=== PATIENT | female | born 1960 | race Caucasian/White ===

== ENCOUNTER → 2017-02-03 | Outpatient (CLI) | payer OTHER ==
[2017-02-03 14:27] LABS: BUN/CREATININE RATIO 13.33; CALCIUM SERUM 9.1 mg/dL (8.4-10.2); CREATININE SERUM 0.9 mg/dL (0.6-1.4); GLOM FILT RATE Estimated 70.5 mL/min (>60); POTASSIUM 4.2 mmol/L (3.5-5.1)
[2017-02-03 14:36] LABS: THYROID STIMULATING HORMONE 2.46 uIU/ml (0.34-5.60)
[2017-02-03 14:44] LABS: FREE THYROXIN (T4) 1.16 ng/dL (0.58-1.64)
== END | disposition home or self-care (01) ==
LOC: CLAB 13:33
PROVIDERS: Internal Medicine Cardiovascular Disease
DX: I48.91 Unspecified atrial fibrillation (principal)
CPT/HCPCS: 36415; 80048; 84439; 84443